=== PATIENT | female | born 1995 | race Caucasian/White ===

== ENCOUNTER 2020-03-04 17:48 | Emergency (ER) | payer OTHER ==
[~2020-03-04] VITALS: Ht 167.6 cm; Wt 88.9 kg
[2020-03-04 17:55] VITALS: BP 111/63
--- NOTE | 2020-03-04 17:55 | NUR ---
PT AMBULATED TO LOBBY, GIVEN URINE CUP
--- NOTE | 2020-03-04 18:45 | NUR ---
GIOVANNY SANFORD AT BEDSIDE
[2020-03-04] MEDS ORDERED: KETOROLAC 30 MG/ML VIAL IM ONE (18:50)
--- NOTE | 2020-03-04 19:10 | NUR ---
CHANGE OF SHIFT REPORT GIVEN BY BALDO. PT IN BED RESTING COMFORTABLY, NO FURTHER NEEDS AT THIS TIME. VSS.
[2020-03-04] MEDS ORDERED: BACITRACIN OINT 500 UNITS/GM PKT TP ONE (19:40)
--- NOTE | 2020-03-04 20:03 | NUR ---
BACITRACIN APPLIED ON LEFT HAND WOUND. PT TOLERATED PROCEDURE WELL.
--- NOTE | 2020-03-04 20:49 | NUR ---
Patient discharged with v/s stable. Written and verbal after care instructions given and explained. Patient alert, oriented and verbalized understanding of instructions. Ambulatory with steady gait. All questions addressed prior to discharge. ID band removed. Patient advised to follow up with PMD. Rx of MOTRIN, FLEXERIL, AND BACITRACIN given. Patient educated on indication of medication including possible reaction and side effects. Opportunity to ask questions provided and answered.
== END 2020-03-04 20:49 | disposition home or self-care (01) ==
LOC: MED 17:48
DX: S60.222A Contusion of left hand, initial encounter (principal); S40.212A Abrasion of left shoulder, initial encounter; S80.812A Abrasion, left lower leg, initial encounter; V49.60XA Unspecified car occupant injured in collision with unspecified motor vehicles in traffic accident, initial encounter; Y93.89 Activity, other specified; Y92.488 Other paved roadways as the place of occurrence of the external cause; Y99.8 Other external cause status
CPT/HCPCS: 73130; 81025; 90471; 90715; 96372; 99284; J1885; Q0092

== ENCOUNTER 2020-08-13 22:30 | Emergency (ER) | payer OTHER ==
[~2020-08-13] VITALS: Ht 165.1 cm; Wt 86.2 kg
[2020-08-13 22:38] VITALS: BP 118/63
[2020-08-13 23:10] VITALS: BP 118/63
== END 2020-08-14 00:10 | disposition home or self-care (01) ==
LOC: MED 22:30
DX: K59.00 Constipation, unspecified (principal); R10.9 Unspecified abdominal pain
CPT/HCPCS: 74021; 81002; 81025; 99283